=== PATIENT | male | born 1945 | race Caucasian/White ===

== ENCOUNTER 2018-12-02 12:09 | Inpatient (IN) | payer MEDICARE ==
[~2018-12-02] VITALS: Ht 180.3 cm; Wt 97.7 kg
[2018-12-02] MEDS ORDERED: FUROSEMIDE20 MG PO (12:20)
[2018-12-02] MEDS ORDERED: BYSTOLIC10 MG PO (12:21)
[2018-12-02] MEDS ORDERED: FLOMAX0.4 MG PO (12:22)
[2018-12-02] MEDS ORDERED: DIOVAN160 MG PO (12:23)
[2018-12-02] MEDS ORDERED: CARAFATE1 G (12:24)
[2018-12-02] MEDS ORDERED: TESSALON PERLE100 MG PO (12:25)
[2018-12-02] MEDS ORDERED: DEXILANT30 MG PO (12:26)
[2018-12-02] MEDS ORDERED: KLOR-CON 1010 MEQ (12:27)
[2018-12-02 13:18] LABS: BASOPHILS 0.2 % (0-2); HEMATOCRIT 34.7 % (42.0-54.0); IMMATURE GRANULOCYTES 1.3 % (0-5); LYMPHOCYTES 11.8 % (15-50); MCH 20.4 pg (26.0-34.0); MCHC 31.7 g/dL (31.0-37.0); MCV 64.5 fL (80.0-100.0); MEAN PLATELET VOLUME 9.9 fL (7.4-10.4); MONOCYTES 10.5 % (2-11); NEUTROPHILS 75.2 % (40-80); PLATELET COUNT 297 10x3/uL (130-400); RBC 5.38 10x6/uL (4.20-6.10); RDW 16.8 % (11.5-14.5)
--- NOTE | 2018-12-02 13:19 | NUR ---
PATIENT BECAME DIAPHORETIC AND SOB IN CT. HE WAS PLACED BACK ON THE MONTIOR AND REASSESSED. HE IS AWAKE AND ALERT. O2 SAT WAS 85%. PLACED ON 4/L/NC O2 INCREASED TO 92%. RESPIRATORY CALLED FOR UPDRAFT.
[2018-12-02 13:21] VITALS: BP 123/57
[2018-12-02 13:23] LABS: APTT 25.2 SECONDS (22.8-39.4); INR 1.04 (0.85-1.17); PROTIME 13.1 SECONDS (11.6-15.0)
[2018-12-02 13:29] LABS: ALKALINE PHOSPHATASE 48 U/L (46-116); ALT (SGPT) 27 U/L (10-68); CALC OSMOLALITY 283 mosm/kg (275-300); CALCIUM 8.6 mg/dL (8.5-10.1); CARBON DIOXIDE 37.8 mmol/L (21.0-32.0); CHLORIDE - SERUM 98 mmol/L (98-107); CREATININE - SERUM 1.2 mg/dL (0.6-1.3); GLUCOSE 102 mg/dL (74-106); POTASSIUM - SERUM 3.6 mmol/L (3.5-5.1); PROTEIN - SERUM 6.4 g/dL (6.4-8.2); SODIUM 140 mmol/L (136-145); UREA NITROGEN 27 mg/dL (7-18); eGFR NON AFRICAN AMERICAN 63 mL/min (90-120)
[2018-12-02 13:40] LABS: CKMB 1.6 U/L (0.0-3.6); CREATINE KINASE 74 UL (21-232); MAGNESIUM - SERUM 2.3 mg/dL (1.8-2.4); THYROID STIMULATING HORMONE 1.37 uIU/mL (0.36-3.74)
[2018-12-02 13:41] LABS: TROPONIN-I < 0.017 ng/mL (0.000-0.060)
[2018-12-02 14:37] VITALS: BP 118/68
--- NOTE | 2018-12-02 15:15 | NUR ---
RECEIVED TO RM WITH ASSIST OF STAFF. EXPRESSIVE APHASIA BUT ABLE TO ANSWER YES AND NO QUESTIONS WITH SOME INTERMITTANT CONFUSION. FALL RISK WITH PRECAUTIONS IN PLACE. OPEN SHEERS STAGE 2 NOTED TO BILATERAL ISHIUMS OF BUTTOCK WITH DRESSSIGN APPLIED. LUNGS CTA. TELEMETRY INTACT. DENIES ANY CHEST PAIN OR DISCOMFORT WTIH RT. HEMIPARESIS NOTED. ABLE TO USE URINAL AT THIS TIME. FAMILY PRESENT AND ENCOURAGEED TO USE CALL LIGHT FOR ASSIST.
[2018-12-02 15:55] VITALS: BP 128/59
[2018-12-02 17:22] LABS: CKMB 1.8 U/L (0.0-3.6); CREATINE KINASE 80 UL (21-232)
[2018-12-02 17:24] LABS: TROPONIN-I < 0.017 ng/mL (0.000-0.060)
--- NOTE | 2018-12-02 19:12 | NUR ---
PT IN BED RESTING. FAMILY VOICES CONCERNS R/T DISTENDED ABD AND LACK OF VOIDING. PT HAS ONLY VOIDED 100ML SINCE ADMISSION TO HOSPITAL PER FAMILY. WILL BLADDER SCAN.
--- NOTE | 2018-12-02 19:21 | NUR ---
BLADDER SCAN RESULTED 229 ML
--- NOTE | 2018-12-02 19:26 | NUR ---
BLADDER SCAN PERFORMED. 229ML OF URINE IN BLADDER.
[2018-12-02 20:00] VITALS: BP 142/67
[2018-12-02 23:22] LABS: CKMB 1.4 U/L (0.0-3.6); CREATINE KINASE 64 UL (21-232); TROPONIN-I < 0.017 ng/mL (0.000-0.060)
[2018-12-03] VITALS (9 sets, daily range): BP systolic 121–162; BP diastolic 61–92; Ht 180.3 cm; Wt 97.7 kg
--- NOTE | 2018-12-03 01:12 | NUR ---
I have reviewed this patient and I concur with the Shift Assessment completed by the Licensed Practical Nurse today this shift.
--- NOTE | 2018-12-03 01:13 | NUR ---
I have reviewed this patient and I concur with the Shift Assessment completed by the Licensed Practical Nurse today this shift.
[2018-12-03 05:36] LABS: INR 1.09 (0.85-1.17); PROTIME 13.6 SECONDS (11.6-15.0)
[2018-12-03 05:47] LABS: HEMATOCRIT 34.8 % (42.0-54.0); HEMOGLOBIN 10.9 g/dL (13.5-17.5); LYMPHOCYTES 14.4 % (15-50); MCHC 31.3 g/dL (31.0-37.0); MEAN PLATELET VOLUME 9.4 fL (7.4-10.4); NEUTROPHILS 75.6 % (40-80); PLATELET COUNT 300 10x3/uL (130-400); RDW 17.7 % (11.5-14.5)
[2018-12-03 05:49] LABS: MCV 66.9 fL (80.0-100.0)
[2018-12-03 06:05] LABS: CALC OSMOLALITY 289 mosm/kg (275-300); CALCIUM 8.3 mg/dL (8.5-10.1); CARBON DIOXIDE 34.5 mmol/L (21.0-32.0); CHLORIDE - SERUM 101 mmol/L (98-107); CHOL - HDL RATIO 4.6 ratio (2.3-4.9); CHOLESTEROL, TOTAL 143 mg/dL (0-200); CKMB 1.8 U/L (0.0-3.6); CREATINE KINASE 72 UL (21-232); GLUCOSE 96 mg/dL (74-106); HDL CHOLESTEROL 31 mg/dL (32-96); LDL CHOLESTEROL 83 mg/dL (0-100); LDL-HDL RATIO 2.7 ratio (1.5-3.5); MAGNESIUM - SERUM 2.3 mg/dL (1.8-2.4); PHOSPHOROUS 3.1 mg/dL (2.5-4.9); POTASSIUM - SERUM 3.4 mmol/L (3.5-5.1); SODIUM 143 mmol/L (136-145); T4 THYROXIN - FREE 1.07 ng/dL (0.76-1.46); THYROID STIMULATING HORMONE 1.21 uIU/mL (0.36-3.74); TRIGLYCERIDE 149 mg/dL (30-200); TROPONIN-I < 0.017 ng/mL (0.000-0.060); UREA NITROGEN 26 mg/dL (7-18); eGFR NON AFRICAN AMERICAN 78 mL/min (90-120)
--- NOTE | 2018-12-03 07:38 | NUR ---
PT LYING IN BED AWAKE, FAMILY AT BEDSIDE. NO NEEDS VOICED, BED IN LOW POSITION, CL IN REACH, ASSUME PT CARE
--- NOTE | 2018-12-03 08:26 | NUR ---
UNABLE TO DO MRI DUE TO PATIENT BEING UNABLE TO LAY FLAT. PATIENT STATED HE CAN NOT BREATH WHEN LAYING FLAT. ATTEMPTED TO LAY HIM FLAT IN HIS BED AND HE COULD NOT TOLERATE IT. NOTIFIED KATHIE SCHUSTER.
--- NOTE | 2018-12-03 08:50 | NUR ---
PT IS UNABLE TO LAY FLAT PER FAMILY, STATES PT SITS IN RECLINER AT HOME AND THAT IS WHERE HE SLEEPS, UNABLE TO DO MRI, ADVISED CARE TEAM. WILL CONTINUE WITH PLAN OF CARE
--- NOTE | 2018-12-03 09:27 | NUR ---
CTA ORDERED FOR PT. PT CAN NOT LAY FLAT DUE TO BREATHING MEASURES, SPOKE TO CLAUDIA IN REGARDS TO MEDICATIONS TO CALM PT DOWN FOR SCAN. CONTINUE WITH PLAN OF CARE
--- NOTE | 2018-12-03 10:09 | NUR ---
NOTIFIED NURSE KATHIE ABOUT CRITICAL HIGH PCO2 LEVEL. STATED SHE WOULD CALL .
--- NOTE | 2018-12-03 11:21 | NUR ---
Rehab Prescreening Consult recieved and the chart has been reviewed. He has a MRI, PT, OT and ST ordered and still pending. Rehab will follow for results to determine if patient meets criteria for the ARU. Fior Pratt RN Clinical Liaison, Rehab
[2018-12-03 12:29] LABS: % SATURATION 18 % (15-55); IRON 42 ug/dl (35-150); TOTAL IRON BIND CAPACITY 227 ug/dl (260-445); UNSAT IRON BIND CAPACITY 185 ug/dl (150-375)
--- NOTE | 2018-12-03 14:27 | NUR ---
RECEIVED CALL FROM SLY AT [facility] WHO STATED SHE HAS SPOKEN TO DR ALEJANDRO AND HE HAS BEEN ACCEPTED TO [facility] AND NEEDS TO GO THROUGH THE ED DEPARTMENT. FAX FACESHEET TO [phone] CALL REPORT TO [phone] AND TRANFER NUMBER IS [phone], MEDICAL IMAGES WILL BE SENT WELL. CONTINUE WITH PLAN OF CARE UNTIL TRANSFER DONE
[2018-12-03] MEDS ORDERED: ASPIRIN325 MG PO (14:38)
[2018-12-03] MEDS ORDERED: LOVENOX INJ100 MG/ML SC (14:38)
--- NOTE | 2018-12-03 16:48 | NUR ---
PT LYING IN BED, NO FAMILY AT BEDSIDE, NO S/S OF DISTRESS, CONTINUE WITH PLAN OF CARE
--- NOTE | 2018-12-03 18:50 | NUR ---
EMS HERE TO TRANSFER PT TO [facility], WENT TO ASSIST WITH PT TRANSFERRING TO [facility], PT OPENED EYS BUT WOULD NOT RESPOND, BREATHING WAS VERY SHALLOW AND WET, CALLED KENNETH WITH RT TO GET TO 12, PT WAS STATING AT 42, RT WENT TO GET REBREATHER I CALLED A RAPID ON PT, DR WILSON CAME IN AND ORDERED STAT ABG, XRAY AND CT, STATED TO HAVE PT MOVED TO ICU. CALLED TRANSFER TEAM AND ADVISED PT WILL NOT BE GOING TO [place] AT THIS TIME AND TRANSFERRING TO OUR UNIT, EXPLAINED A RAPID HAD TO BE CALLED, CALLED PT SON AND ADVISED OF ICU TRANSFER, CALLED ROD MACHINE OPERATOR AND ADVISED OF RAPID, SPOKE TO TAX INVESTIGATOR IN REGARDS TO MATTER, SHE STATED SHE CALLED ON RADIO AT 3 THAT PT WAS STATING AT 84 AND SHE THOUGHT SOMEONE ANSWERED HER, PT ON HIGHFLOW AT 4L AND SHE STATED SHE DID NOT KNOW THAT PT WAS ON O2, SHE DID NOT FOLLOW UP ON THE REPORT THAT SHE MADE, I EDUCATED HER THAT PT'S O2 MUST BE ABOVE 92 IF LOWER MAKE SURE NURSE KNOWS, CHART THAT SHE ADVISED A NURSE AND WHO SHE SPOKE WITH. PT TRANSFERED TO [address] COMPLE[address]ED. TRANSFER TEAM CALLED BACK AND REQUESTED DR BRAUN NUMBER FOR A DOC TO DOC UPDATE
--- NOTE | 2018-12-03 19:40 | NUR ---
REC'D TO ROOM 2305 VIA BED, TRANSFERRED TO ICU BED, ICU MONITORS ESTAB. PT INCONT OF URINE AND BOWELS, NOT FOLLOWING ANY DIRECTIONS OR SPEAKING. R ARM FLACCID, L LEG MINIMAL REFLEX. PLACED ON BIPAP PER RT. 1999 - PT CLEANED UP, NARAYANAN CATH PLACED WITHOUT DIFFICULTY, GRIFFIN URINE NOTED.
--- NOTE | 2018-12-03 20:20 | NUR ---
FAMILY AT BS, UPDATED, QUESTIONS ANSWERED.
--- NOTE | 2018-12-03 21:20 | NUR ---
DR. CASSIDY HERE, SPOKE WITH FAMILY. NEW ORDER FOR [facility] REC'D.
--- NOTE | 2018-12-03 21:38 | NUR ---
DR. CASSIDY NOTIFIED OF NEW ABGS, PLAN TO CONTINUE WITH TRANSFER TO [facility].
--- NOTE | 2018-12-03 22:40 | NUR ---
SPOKE WITH CLAUDIA AT [facility] RE: TRANSFER. SHE STATED IT WAS CANCELLED - DR. ANGE DYER.
--- NOTE | 2018-12-03 23:11 | NUR ---
DR. CASSIDY NOTIFIED OF TRANSFER CENTER AT [facility] REPORTING TRANSFER WAS CANCELLED.
--- NOTE | 2018-12-03 23:25 | NUR ---
REASSESSMENT PER FLOWSHEET, PT MORE RESPONSIVE AT THIS TIME, NODDED HEAD AND MOVED L EXTR TO COMMAND. ORAL CARE PROVIDED, THEN RESUMED BIPAP AT 60% FIO2. PT BACK TO REST. WILL CONT Q2H TURNING AND ORAL CARE.
[2018-12-04] VITALS (38 sets, daily range): BP systolic 73–159; BP diastolic 38–91
--- NOTE | 2018-12-04 01:00 | NUR ---
RESTING WITH EYES CLOSED, VSS. NO SIGN OF DISTRESS.
[2018-12-04 02:17] LABS: APPEARANCE CLEAR (CLEAR); BILIRUBIN NEGATIVE (NEGATIVE); COLOR YELLOW (YELLOW); GLUCOSE NEGATIVE (NEGATIVE); KETONE NEGATIVE (NEGATIVE); NITRITE NEGATIVE (NEGATIVE); PROTEIN NEGATIVE (NEGATIVE); UROBILINOGEN NORMAL (NORMAL)
--- NOTE | 2018-12-04 03:15 | NUR ---
REASSESSMENT PER FLOWSHEET, NO ACUTE CHANGES.
--- NOTE | 2018-12-04 03:55 | NUR ---
SON BACK TO SEE PT, UPDATE GIVEN. PT GIVEN BREAK FROM BIPAP FOR ORAL CARE.
[2018-12-04 04:19] LABS: BASOPHILS 0.2 % (0-2); EOSINOPHILS 0.2 % (0-7); HEMOGLOBIN 11.2 g/dL (13.5-17.5); MCH 20.5 pg (26.0-34.0); MCHC 31.1 g/dL (31.0-37.0); MCV 65.9 fL (80.0-100.0); MEAN PLATELET VOLUME 9.5 fL (7.4-10.4); MONOCYTES 10.7 % (2-11); NEUTROPHILS 76.9 % (40-80); PLATELET COUNT 317 10x3/uL (130-400); RBC 5.46 10x6/uL (4.20-6.10); RDW 17.4 % (11.5-14.5)
[2018-12-04 04:30] LABS: WBC 17.4 10x3/uL (4.8-10.8)
[2018-12-04 04:36] LABS: ALBUMIN 2.7 g/dL (3.4-5.0); ANION GAP 14.5 mmol/L (8-16); BILIRUBIN - TOTAL 0.58 mg/dL (0.2-1.3); CALCIUM 8.5 mg/dL (8.5-10.1); CARBON DIOXIDE 30.6 mmol/L (21.0-32.0); CREATININE - SERUM 1.1 mg/dL (0.6-1.3); POTASSIUM - SERUM 4.1 mmol/L (3.5-5.1); PROTEIN - SERUM 6.3 g/dL (6.4-8.2)
--- NOTE | 2018-12-04 06:00 | NUR ---
PT INCONT OF SMALL FORMED BROWN STOOL. COMPLETE SLIME-CARE, NARAYANAN CARE DONE. BARRIER CREAM APPLIED TO BUTTOCKS AND GROIN/SLIME-AREA.
--- NOTE | 2018-12-04 06:38 | NUR ---
DR. ANGE PERDUE - NEW ORDERS REC'D.
--- NOTE | 2018-12-04 07:30 | NUR ---
REPORT RECIEVED, SHIFT ASSESSMENT COMPLETE, PT IS LETHARGIC AT THIS TIME, AROUSES TO PAINFUL STIMULI, ON 70% BIPAP WITH 95% O2 SAT, ALL PPP, VSS, WILL CON'T TO MONITOR
--- NOTE | 2018-12-04 09:00 | NUR ---
FAMILY AT BEDSIDE, UPDATE GIVEN, PT MORE ALERT AT THIS TIME
[2018-12-04 09:13] LABS: FOLATE (FOLIC ACID) - SERUM 4.3 ng/mL (>3.0)
--- NOTE | 2018-12-04 11:13 | NUR ---
REASSESSMENT COMPLETE, PT MORE ALERT AT THIS TIME, NO OTHER CHANGES NOTED, WILL CON'T TO MONITOR
--- NOTE | 2018-12-04 13:00 | NUR ---
ATTEMPTED TO TAKE PT TO MRI, PT O2 SAT DROPPING, PLACED BACK ON BIPAP, UPDATE GIVEN TO DR. CASSIDY
--- NOTE | 2018-12-04 13:15 | NUR ---
UPDATE GIVEN TO FAMILY, DISCUSSED INTUBATION, FAMILY OK WITH INTUBATION
--- NOTE | 2018-12-04 13:30 | NUR ---
DR. LEWIS AT BEDSIDE, PT INTUBATED AT THIS TIME, PT TOLERATED WELL
--- NOTE | 2018-12-04 13:40 | NUR ---
FAMILY AT BEDSIDE, UPDATE GIVEN
--- NOTE | 2018-12-04 14:00 | NUR ---
PT TO MRI, WENT ASYSTOLE, CHEST COMPRESSIONS STARTED, 1 MIN OF CPR GIVEN, PT TRANFERRED BACK TO UNIT, FAMILY NOTIFIED, DR. CASSIDY AT BEDSIDE,
--- NOTE | 2018-12-04 15:00 | NUR ---
PT RESTING AT THIS TIME, REPOSITIONED FOR COMFORT, WILL CON'T TO MONITOR
--- NOTE | 2018-12-04 17:15 | NUR ---
FAMILY AT BEDSIDE, UPDATE GIVEN
--- NOTE | 2018-12-04 21:25 | NUR ---
HS MEDS GIVEN. TOLERATED WELL.
--- NOTE | 2018-12-04 21:39 | NUR ---
PT CARE RESUMED BY THIS NURSE.
--- NOTE | 2018-12-04 23:19 | NUR ---
REASSESSMENT COMPLETE. NO CHANGES NOTED IN PT CONDITION. PLACED ON SLIDER SHEET. REPOSITIONED FOR COMFORT. SEE FLOWSHEET FOR DETAILS.
[2018-12-05] VITALS (81 sets, daily range): BP systolic 75–179; BP diastolic 40–99
--- NOTE | 2018-12-05 01:11 | NUR ---
REPOSITIONED FOR COMFORT. VSS. NO SS OF DISTRESS. ORAL CARE PROVIDED.
--- NOTE | 2018-12-05 03:08 | NUR ---
REASSESSMENT COMPLETE. NO CHANGES NOTED IN PT CONDITION.
[2018-12-05 06:03] LABS: ALBUMIN 2.1 g/dL (3.4-5.0); ANION GAP 10.1 mmol/L (8-16); BILIRUBIN - TOTAL 0.48 mg/dL (0.2-1.3); CALCIUM 7.9 mg/dL (8.5-10.1); CARBON DIOXIDE 31.7 mmol/L (21.0-32.0); MAGNESIUM - SERUM 2.2 mg/dL (1.8-2.4); PHOSPHOROUS 1.9 mg/dL (2.5-4.9); POTASSIUM - SERUM 3.8 mmol/L (3.5-5.1); PROTEIN - SERUM 5.3 g/dL (6.4-8.2)
[2018-12-05 06:06] LABS: CREATININE - SERUM 1.4 mg/dL (0.6-1.3)
[2018-12-05 06:33] LABS: HEMATOCRIT 28.8 % (42.0-54.0); HEMOGLOBIN 9.1 g/dL (13.5-17.5); MCH 20.4 pg (26.0-34.0); MCHC 31.6 g/dL (31.0-37.0); MCV 64.7 fL (80.0-100.0); MEAN PLATELET VOLUME 9.7 fL (7.4-10.4); PLATELET COUNT 342 10x3/uL (130-400); RBC 4.45 10x6/uL (4.20-6.10); RDW 17.2 % (11.5-14.5); WBC 15.6 10x3/uL (4.8-10.8)
--- NOTE | 2018-12-05 07:00 | NUR ---
EYES OPEN, DOES MAKE EYE CONTACT, DOES OBEY ANY COMMANDS. WILL SQUEEZE HAND BUT NOT ALWAYS AT REQUEST. DOES NOT RELEASE SQUEEZE ON REQUEST. MOVES LEFT LEG BUT NOT AT REQUEST. NO MOVEMENT ON RIGHT SIDE ARM OR LEG. TURNS HEAD TOWARD LEFT SIDE. ETT SECURE TO VENT BILATERAL LUNG SOUNDS EQUAL AND VERY CONGESTED. ABD LARGE AND DISTENDED. NG TURNED ON TO SUCTION GREENIS BROWN LIQUID DRAINAGE NARAYANAN PATENT DRAINING CLOUDY GRIFFIN URINE. RIGHT UPPER ARM PICC LINE DRESSING DRY AND INTACT INFUSING WITH D5NS AT 100 ML HOUR, DIPRIVAN AT 20 MCG/KG/MIN. NEOSYNPHERINE AT 176 MCG/MIN. VASOPRESSIN AT 0.04 UNITS HEAD OF BED ELEVATED 30 DEGREES.
--- NOTE | 2018-12-05 09:00 | NUR ---
WEANING NEOSYNPHRINE CURRENTLY AT 155 MCG/MIN. DIPRIVAN TURNED UP TO 25 MCG/KG/MIN DUE PATIENT CONTANTLY REACHING FOR ETT TUBE. FAMILY AT BEDSIDE UPDATE GIVEN. MONITOR SR. NO DISTRESS. MINIMAL SECRETIONS PER ETT OR ORALLY. OG TO LOW INTERMITTENT SUCTION CHRISTIANSON BROWN DRAINAGE.
[2018-12-05 09:05] LABS: BASOPHILS 1 % (0-2); HYPOCHROMASIA 1+; LYMPHOCYTES 16 % (15-50); MONOCYTES 14 % (2-11); NEUTROPHILS 62 % (40-80); PLATELET ESTIMATE NORMAL
--- NOTE | 2018-12-05 09:12 | NUR ---
Nutrition Follow Up: Reviewed chart and spoke with nursing NPO>/=3days, recommend to consider alternate nutrition support RD following per protocol
--- NOTE | 2018-12-05 11:00 | NUR ---
CONTINUE TO WEAN NEOSYNEPHRINE. BLOOD PRESSURE MUCH LOWER ON RIGHT SIDE THAN LEFT SIDE. PATIENT RESTING COMFORTABLY. NO DISTRESS.
--- NOTE | 2018-12-05 13:00 | NUR ---
COMPLETE BED BATH GIVEN WITH HIBCLENS. NARAYANAN CARE. SHAVED, HAIR WASHED. PATIENT TOLERATED WELL. CLEAN LINE APPLIED.ABD ROLL AND GROIN AREA RED. MOISTURE BARRIER APPLIED.
--- NOTE | 2018-12-05 14:00 | NUR ---
TUBE FEEDING STARTED PULMOCARE AT 20 ML HOUR. PER OG. OG CHECKED FOR PROPER PLACEMENT AIR BOLUS AUDIBLE IN ABD. FAMILY AT BEDSIDE UPDATE GIVEN. LUNGS SOUND CLEAR. STILL SOME RALES. HEAD OF BED ELEVATED 30 DEGREES
--- NOTE | 2018-12-05 16:00 | NUR ---
REPOSITIONED ON RIGHT SIDE. NEOSYNPHERINE WEANED TO 30 MCG/MIN.
--- NOTE | 2018-12-05 17:00 | NUR ---
NEOPSYNPHERINE AT 50 MCG/MIN. PATIENT REPOSITIONED
--- NOTE | 2018-12-05 18:00 | NUR ---
FAMILY HERE UPDATE GIVEN. DIPRIVAN AT 15 MCG/KG/MIN. NEOSYNPHRINE AT 50 MCG/MIN. NO DISTRESS. MAKES EYE CONTACT. SQUEEZE LEFT HAND BUT NOT TO COMMANDS.
--- NOTE | 2018-12-05 18:00 | MORECARE ---
CASE MANAGEMENT DISCHARGE SUMMARY PATIENT: GAGAN FROST UNIT: [id number] ADM DATE: 12/02/18 AGE: 73 : 44 SEX: M ROOM/BED: D.2305 AUTHOR: BENNY GARRIDO PHYSICIAN: REFERRING PHYSICIAN: RASHEL COLEMAN MD DATE OF SERVICE: 12/05/18 Discharge Plan Patient Name: GAGAN FROST [facility] [facility] 1945 Planned Disposition: Anticipated Discharge Date: Discharge Date: Expected LOS: Initial Reviewer: [email or web address] Initial Review Date: 12/05/2018 Generated: 12/05/18 7:00 pm Patient Name: GAGAN FROST Page [id number] at 1800 All edits/amendments must be made on the electronic document DICTATION DATE: 12/05/181758 ONYX CHIP TERRAZZO WORKER: KATIE 12/05/181758 RPT#: [id number] DC DATE: STATUS: ADM IN [facility] [address] [place] [address] END OF REPORT
--- NOTE | 2018-12-05 18:10 | MORECARE ---
CASE MANAGEMENT DISCHARGE SUMMARY PATIENT: GAGAN FROST UNIT: [id number] ADM DATE: 12/02/18 AGE: 73 : 44 SEX: M ROOM/BED: D.2305 AUTHOR: BENNY GARRIDO PHYSICIAN: REFERRING PHYSICIAN: RASHEL COLEMAN MD DATE OF SERVICE: 12/05/18 Discharge Plan Patient Name: GAGAN FROST [facility] [facility] 1945 Planned Disposition: Anticipated Discharge Date: Discharge Date: Expected LOS: Initial Reviewer: [email or web address] Initial Review Date: 12/05/2018 Generated: 12/05/18 7:09 pm DCPIA - Discharge Planning Initial Assessment Updated by [email or web address]: Maria Elena Tran on 12/05/18 6:04 pm * Is the patient Alert and Oriented? Yes * How many steps to enter\exit or inside your home? * PCP RASHEL COLEMAN MD * Pharmacy [facility] * Preadmission Environment Home with Family * ADLs Partial Dependent * Partial ADLs (Assistance needed) Ambulation Bathing Dressing Eating Medication Management Toileting Transfers * Other Equipment HOME 02 AND PORTABLE 02, WALKER, CANE * List name and contact numbers for known caregivers / representatives who currently or will assist patient after discharge: FERMÍN CLAYTON- [phone] * Verbal permission to speak to the caregivers and representatives has been obtained from the patient. N/A * Please name any agencies selected above. HOU[facility] CALL[facility] - [place] * Additional services required to return to the preadmission environment? No * Can the patient safely return to the preadmission environment? Yes * Has this patient been hospitalized within the prior 30 days at any hospital? No Last DP export: 12/05/18 5:00 p Patient Name: GAGAN FROST Page [id number] at 1810 All edits/amendments must be made on the electronic document DICTATION DATE: 12/05/181808 COMMERCIAL REAL ESTATE APPRAISER: KATIE 12/05/181808 RPT#: [id number] DC DATE: STATUS: ADM IN [facility] [address] [place] [address] END OF REPORT
--- NOTE | 2018-12-05 18:19 | MORECARE ---
CASE MANAGEMENT DISCHARGE SUMMARY PATIENT: GAGAN FROST UNIT: [id number] ADM DATE: 12/02/18 AGE: 73 : 43 SEX: M ROOM/BED: D.2305 AUTHOR: HEMA,DOC PHYSICIAN: REFERRING PHYSICIAN: RASHEL COLEMAN MD DATE OF SERVICE: 12/05/18 Discharge Plan Patient Name: GAGAN FROST Facility: [facility]:[place] : 1945 Planned Disposition: Anticipated Discharge Date: Discharge Date: Expected LOS: Initial Reviewer: [email or web address] Initial Review Date: 12/05/2018 Generated: 12/05/18 7:19 pm Comments DCP- Discharge Planning Updated by [email or web address]: Maria Elena Tran on 12/05/18 5:[address] Patient Name: GAGAN FROST Admission Status: ER Accout number: [id number] Admission Date: 12-02-2018 : 1945 Admission Diagnosis: Attending: RASHEL COLEMAN Current LOS: 3 Anticipated DC Date: Planned Disposition: Primary Insurance: MEDICARE A & B Discharge Planning Comments: CM SPOKE WITH PATIENTS SON (GAGAN) PATIENT IS CURRENTLY ON VENT. GAGNA STATED THAT THE PATIENT LIVED AT HOME WITH SOME OF THE FAMILY WITH HIM AT ALL TIMES. HE STATED THE PATIENT DIDN'T GO OUT MUCH BECAUSE HE WOUULD GET TO SHORT OF BREATH. PATIENT DOES HAVE HOME 02 AND PORTABLE 02, WALKER AND A CANE. UNCERTAIN ON PATIENTS DISPOSITION AT THIS TIME. PATIENT IS VERY CRITICAL AT THIS TIME. PATIENT NOT WILLING TO MAKE ANY DECISIONS AT THIS TIME. CM WILL CIONTINUE TO FOLLOW AND ASSIST NEEDED WITH DISCHARGE PLANNING / NEEDS. Jukebox Checker: Maria Elena Tran DCPIA - Discharge Planning Initial Assessment Updated by [email or web address]: Maria Elena Tran on 12/05/18 6:04 pm * Is the patient Alert and Oriented? Yes * How many steps to enter\exit or inside your home? * PCP RASHEL COLEMAN MD * Pharmacy [facility] * Preadmission Environment Home with Family * ADLs Partial Dependent * Partial ADLs (Assistance needed) Ambulation Bathing Dressing Eating Medication Management Toileting Transfers * Other Equipment HOME 02 AND PORTABLE 02, WALKER, CANE * List name and contact numbers for known caregivers / representatives who currently or will assist patient after discharge: FERMÍN FROST - [place]- [phone] * Verbal permission to speak to the caregivers and representatives has been obtained from the patient. N/A * Please name any agencies selected above. HOUSE CALLS - [place] * Additional services required to return to the preadmission environment? No * Can the patient safely return to the preadmission environment? Yes * Has this patient been hospitalized within the prior 30 days at any hospital? No Last DP export: 12/05/18 5:09 p Patient Name: GAGAN FROST Page [id number] at 1819 All edits/amendments must be made on the electronic document DICTATION DATE: 12/05/181818 POWDER TRUCK DRIVER: KATIE 12/05/181818 RPT#: [id number] DC DATE: STATUS: ADM IN [facility] [address] [place] [address] END OF REPORT
--- NOTE | 2018-12-05 19:28 | NUR ---
PT RECEIVED SEDATED ON VENT. EYES OPEN SPONTANIOUSLY. LEFT UPPER ARM PICC C/D/I. NARAYANAN PATENT WITH CLOUDY GRIFFIN URINE. VENT A/C 16, 550, 50%, 5.O. VSS. ASSESSMENT COMPLETED, SEE FLOW SHEET. WILL CONTINUE TO OBSERVE.
--- NOTE | 2018-12-05 21:38 | NUR ---
PT CONTINUES VENT. IV ALARMS SOUNDING FREQUENTLY FOR AIR IN LINES WITH NO AIR BUBBLES SEEN IN LINES, CHANNEL CHANGED AND ALARMS FOR OCCLUSION STARTED, RATE OF FLUIDS IS LOW. LINES FLUSHED WITHOUT DIFFICULTY, CHANNEL CONTINUED TO ALARM FOR OCCLUSION, NEW CHANNEL APPLIED. WILL CONTINUE TO OBSERVE.
--- NOTE | 2018-12-05 23:20 | NUR ---
PT REASSESSMENT COMPLETED, SEE FLOW SHEET. WILL CONTINUE TO OBSERVE.
[2018-12-06] VITALS (100 sets, daily range): BP systolic 58–159; BP diastolic 39–80
--- NOTE | 2018-12-06 01:14 | NUR ---
VESOPRESSIN STOPPED AFTER TITRATION.
--- NOTE | 2018-12-06 03:05 | NUR ---
REASSESSMENT COMPLETED, SEE FLOW SHEET. NO S/S OF DISTRESS NOTED. WILL CONTINUE TO OBSERVE.
[2018-12-06 04:39] LABS: BASOPHILS 0.2 % (0-2); EOSINOPHILS 2.2 % (0-7); HEMATOCRIT 25.7 % (42.0-54.0); IMMATURE GRANULOCYTES 0.9 % (0-5); LYMPHOCYTES 15.3 % (15-50); MCH 20.1 pg (26.0-34.0); MCHC 31.1 g/dL (31.0-37.0); MCV 64.6 fL (80.0-100.0); MONOCYTES 12.8 % (2-11); NEUTROPHILS 68.6 % (40-80); PLATELET COUNT 231 10x3/uL (130-400); RBC 3.98 10x6/uL (4.20-6.10); RDW 17.2 % (11.5-14.5); WBC 10.4 10x3/uL (4.8-10.8)
--- NOTE | 2018-12-06 05:01 | NUR ---
CHANGED FIO2 TO 40% PER MORNING ABG
[2018-12-06 05:18] LABS: ALBUMIN 1.8 g/dL (3.4-5.0); ALKALINE PHOSPHATASE 38 U/L (46-116); ALT (SGPT) 24 U/L (10-68); BILIRUBIN - TOTAL 0.45 mg/dL (0.2-1.3); CALC OSMOLALITY 309 mosm/kg (275-300); CALCIUM 7.5 mg/dL (8.5-10.1); CARBON DIOXIDE 31.6 mmol/L (21.0-32.0); CHLORIDE - SERUM 113 mmol/L (98-107); GLUCOSE 131 mg/dL (74-106); MAGNESIUM - SERUM 2.5 mg/dL (1.8-2.4); PROTEIN - SERUM 4.9 g/dL (6.4-8.2); SODIUM 151 mmol/L (136-145); UREA NITROGEN 34 mg/dL (7-18)
[2018-12-06 05:23] LABS: CREATININE - SERUM 0.9 mg/dL (0.6-1.3); PHOSPHOROUS 1.5 mg/dL (2.5-4.9); POTASSIUM - SERUM 3.1 mmol/L (3.5-5.1); eGFR NON AFRICAN AMERICAN 88 mL/min (90-120)
--- NOTE | 2018-12-06 06:18 | NUR ---
POTASSIUM POWDER GIVEN VIA OGT PER ELECTROLYTE PROTOCOLS. PT TOLERATED WELL.WILL CONTINUE TO OBSERVE
--- NOTE | 2018-12-06 06:25 | NUR ---
PHARMACY CALLED AND REQUESTED PHOSPHATE 20MM PER ELECTROLYTE PROTOCOL FOR PHOS OF 1.5
--- NOTE | 2018-12-06 06:40 | NUR ---
REPORTED PHOS 1.5 TO SHREYA TAYLOR APRN, AND PT ON ELECTROLYTE PROTOCOL AND PHARMACY CALLED.
--- NOTE | 2018-12-06 07:30 | NUR ---
EYES OPEN LIFTING LEFT HAND UP TO ETT, LOWERS HAND WHEN ASKED. DOES REALLY MAKE EYE CONTACT, BUT TURNS HEAD AND EYES TOWARD, WHEN ASK TO LOOK AT ME. ETT SECURE TO VENT BILATERAL LUNG SOUNDS EQUAL. ABD STILL LOOKS DISTENDED. OG INFUSING WITH PULMOCARE AT 30 ML HOUR. CHECK FOR RESIDUAL 65 MML RECEIVED BACK. RIGHT UPPER ARM PICC LINE DRESSING DRY AND INTACT. HEAD OF BED ELEVATED 30 DECREES. NO DISTRESS NOTED NARAYANAN CATH PATENT
--- NOTE | 2018-12-06 09:05 | NUR ---
FAMILY AT BEDSIDE UPDATE GIVEN. SUCTIONED SMALL AMOUNT WHITE SECRETIONS PER ETT. MINIMAL ORAL SECRETIONS.
--- NOTE | 2018-12-06 10:30 | NUR ---
REPOSITIONED ON BACK.
--- NOTE | 2018-12-06 11:19 | NUR ---
NEOSYNPHRINE INCREASED TO 30 MCG/MIN FOR SYS BP IN 60'S
--- NOTE | 2018-12-06 12:30 | NUR ---
DR. MARTELL HERE TALKED WITH FAMILY
--- NOTE | 2018-12-06 13:43 | NUR ---
DR. CASSIDY HERE TALKED WITH FAMILY
--- NOTE | 2018-12-06 14:00 | NUR ---
REPOSITIONED ON LEFT SIDE. NO ORAL OR TRACH SECRETIONS. URINE DARK THICK BROWN. MONITOR SR. HEAD OF BED ELEVATED. 10CC RESIDUAL PER OG. TUBE FEEDING INCREASED TO 40 ML HOUR.
--- NOTE | 2018-12-06 14:38 | NUR ---
NEOSYNEPHRINE INCREASED TO 40 MCG/MIN FOR SBP LESS THAN 70.
--- NOTE | 2018-12-06 15:39 | NUR ---
NEOSYNPHERINE WEAN TO 30 MCG/MIN. FOR SYS BP GREATER THAN 95
--- NOTE | 2018-12-06 18:00 | NUR ---
TURN SIDE TO SIDE, SMALL FORMED BM. NEW LINEN NARAYANAN CARE DONE. PATIENT TOLERATES POORLY BLOOD PRESSURE DROPPED NEOSYNPHERINE INCREASED TO 40 MCG/MIN.
--- NOTE | 2018-12-06 19:00 | NUR ---
ASSESSMENT COMPLETED PER FLOWSHEETS. PT SEDATED ON VENT, OPENS EYES WITH VOICES. ST ON CM WITH HR AT 105BPM. NEOSYNEPHRINE DRIP AT 40MCG/MIN INFUSING VIA PUMP TO KEEP SBP> 90S. WILL CONT TO MONITOR.
--- NOTE | 2018-12-06 21:00 | NUR ---
FAMILY AT BEDSIDE, UPDATED.
--- NOTE | 2018-12-06 23:00 | NUR ---
REASSESSMENT COMPLETED. SEE FLOWSHEETS FOR ALL FINDINGS. NO ACUTE SIGNS OF DISTRESS NOTED. TITRATE LANETTE DRIP FOR BP. CPOC.
[2018-12-07] VITALS (45 sets, daily range): BP systolic 56–162; BP diastolic 34–74
--- NOTE | 2018-12-07 01:00 | NUR ---
PT SEDATED ON VENT WITHOUT DISTRESS. VSS
--- NOTE | 2018-12-07 03:00 | NUR ---
REASSESSMENT COMPLETED. SEE FLOWSHEETS FOR ALL FINDINGS. NO ACUTE CHANGES IN PT'S STATUS NOTED. CONT SEDATION ON VENT FOR PT'S COMFORT. CPOC.
[2018-12-07 05:25] LABS: HEMOGLOBIN 8.6 g/dL (13.5-17.5); MCHC 30.7 g/dL (31.0-37.0); MCV 64.5 fL (80.0-100.0); MEAN PLATELET VOLUME 9.6 fL (7.4-10.4); RBC 4.34 10x6/uL (4.20-6.10); RDW 17.7 % (11.5-14.5); WBC 12.1 10x3/uL (4.8-10.8)
[2018-12-07 05:26] LABS: MCH 19.8 pg (26.0-34.0); PLATELET COUNT 306 10x3/uL (130-400)
--- NOTE | 2018-12-07 05:45 | NUR ---
NEOSYNEPHRINE DRIP OFF.
[2018-12-07 05:48] LABS: ALBUMIN 2.1 g/dL (3.4-5.0); ALKALINE PHOSPHATASE 46 U/L (46-116); BILIRUBIN - TOTAL 0.39 mg/dL (0.2-1.3); CALC OSMOLALITY 306 mosm/kg (275-300); CALCIUM 7.5 mg/dL (8.5-10.1); CARBON DIOXIDE 30.5 mmol/L (21.0-32.0); CHLORIDE - SERUM 114 mmol/L (98-107); CREATININE - SERUM 0.9 mg/dL (0.6-1.3); GLUCOSE 121 mg/dL (74-106); POTASSIUM - SERUM 3.8 mmol/L (3.5-5.1); PROTEIN - SERUM 5.4 g/dL (6.4-8.2); SODIUM 150 mmol/L (136-145); UREA NITROGEN 35 mg/dL (7-18); eGFR NON AFRICAN AMERICAN 88 mL/min (90-120)
[2018-12-07 05:49] LABS: ALT (SGPT) 34 U/L (10-68); PHOSPHOROUS 2.2 mg/dL (2.5-4.9)
--- NOTE | 2018-12-07 07:05 | NUR ---
SHIFT REPORT RECEIVED. INTUBATED AND SEDATED. OPENS EYES AND MOVES LEFT ARM SPONTANOUSLY. DOES NOT FOLLOW COMMANDS. HAS NEHA PICC WITH PROPOFOL AT 15MCG/KG/MIN, 1/2 NS AT 100ML/HR. ETT 8.5 26 AT THE LIP. A/C R14, TV 600, FIO2 40%, PEEP 5. OGT WITH PULMOCARE AT 40ML/HR WITH 25ML H2O FLUSH Q1HR. NARAYANAN IN PLACE WITH DARK URINE NOTED. WRIST RESTRAINTS IN PLACE PER ORDER. SHIFT ASSESSMENT COMPLETED. SIDE RAILS UP X 2. BED IN LOW POSITION. WILL CONTINUE TO MONITOR.
[2018-12-07 08:30] LABS: EOSINOPHILS 3 % (0-7); LYMPHOCYTES 27 % (15-50); MONOCYTES 10 % (2-11); NEUTROPHILS 60 % (40-80); PLATELET ESTIMATE NORMAL
--- NOTE | 2018-12-07 09:00 | NUR ---
RESTING COMFORTABLY. FAMILY AT BEDSIDE. WILL CONTINUE TO MONITOR.
--- NOTE | 2018-12-07 09:20 | NUR ---
Nutrition Follow Up: Pulmocare increased to 40mL/hour with 25mL/hour water flush This regimen provides 1440 calories, 60gm protein and 1353mL fluid Propofol at 15mcg/kg/min RD following
--- NOTE | 2018-12-07 11:15 | NUR ---
SBP DROPPED TO 60S. LANETTE INITIATED AT 5MCG/MIN PER ORDERS. WILL CONTINUE TO MONITOR.
--- NOTE | 2018-12-07 12:17 | NUR ---
A LINE PLACED ON RIGHT ARM PER ORDERS BY ANESTHESIA. BP IN LOW 100S. FAMILY AT BEDSIDE. WILL CONTINUE TO MONITOR.
--- NOTE | 2018-12-07 14:03 | NUR ---
1120- LANETTE INCREASED TO 10MCG/MIN. 1130-LANETTE INCREASED TO 15MCG/MIN. 1150 LANETTE INCREASED TO 20MCG/MIN. 1230 LANETTE INCREASED TO 25MCG/MIN. 1300 LANETTE INCREASED TO 30MCG/MIN. 1330 LANETTE INCREASED TO 35MCG/MIN. 1345 LANETTE INCREASED TO 40MCG/MIN.
--- NOTE | 2018-12-07 14:48 | NUR ---
TREATING BP WITH LANETTE. AT 1440 HR DROPPED TO 30S. ATROPINE GIVEN. PT DNR. DR. CASSIDY NOTIFIED. ORDERED DOPAMINE TO BE STARTED. FAMILY DOES NOT WANT ANY MORE MEDS AT THIS TIME. FAMILY AT BEDSIDE. PT IN 3RD DEGREE BLOCK. WILL CONTINUE TO MONITOR.
--- NOTE | 2018-12-07 15:01 | NUR ---
DR. MARTELL NOTIFIED OF LOW HR. ALSO NOTIFIED THAT FAMILY DID NOT WANT ANYTHING ELSE DONE AT THIS TIME.
--- NOTE | 2018-12-07 16:20 | NUR ---
STUD DRIVER WAS NOTIFIED. CHENCHO CALLED AT 1321. WANTS US TO CALL BACK WHEN FAMILY IS FINISHED VIEWING THE PATIENT. DR. MARTELL WAS MADE AWARE OF PT PASSING.
--- NOTE | 2018-12-07 17:22 | NUR ---
LEASING CONSULTANT NOTIFIED OF PT'S PASSING. [facility] HOME NOTIFIED TO MANAGER STYLIST BODY. FAMILY HAS WENT HOME AT THIS TIME.
--- NOTE | 2018-12-07 18:40 | NUR ---
HOME PICKED BODY UP AT THIS TIME.
--- NOTE | 2018-12-07 18:56 | MORECARE ---
CASE MANAGEMENT DISCHARGE SUMMARY PATIENT: GAGAN FROST UNIT: [id number] ADM DATE: 12/02/18 AGE: 73 : 43 SEX: M ROOM/BED: D.2305 AUTHOR: HEMA,DOC PHYSICIAN: REFERRING PHYSICIAN: RASHEL COLEMAN MD DATE OF SERVICE: 12/07/18 Discharge Plan Patient Name: GAGAN FROST Facility: [facility]:[place] : 1945 Planned Disposition: Anticipated Discharge Date: Discharge Date: 12/07/2018 Expected LOS: Initial Reviewer: [email or web address] Initial Review Date: 12/05/2018 Generated: 12/07/18 7:56 pm DCP- Discharge Planning Updated by [email or web address]: Maria Elena Tran on 12/05/18 5:[address] Patient Name: GAGAN FROST Admission Status: ER Accout number: [id number] Admission Date: 12-02-2018 : 1945 Admission Diagnosis: Attending: RASHEL COLEMAN Current LOS: 3 Anticipated DC Date: Planned Disposition: Primary Insurance: MEDICARE A & B Discharge Planning Comments: CM SPOKE WITH PATIENTS SON (GAGAN) PATIENT IS CURRENTLY ON VENT. GAGAN STATED THAT THE PATIENT LIVED AT HOME WITH SOME OF THE FAMILY WITH HIM AT ALL TIMES. HE STATED THE PATIENT DIDN'T GO OUT MUCH BECAUSE HE WOUULD GET TO SHORT OF BREATH. PATIENT DOES HAVE HOME 02 AND PORTABLE 02, WALKER AND A CANE. UNCERTAIN ON PATIENTS DISPOSITION AT THIS TIME. PATIENT IS VERY CRITICAL AT THIS TIME. PATIENT NOT WILLING TO MAKE ANY DECISIONS AT THIS TIME. CM WILL CIONTINUE TO FOLLOW AND ASSIST NEEDED WITH DISCHARGE PLANNING / NEEDS. Trapeze Artist: Maria Elena Tran DCPIA - Discharge Planning Initial Assessment Updated by [email or web address]: Maria Elena Tran on 12/05/18 6:04 pm * Is the patient Alert and Oriented? Yes * How many steps to enter\exit or inside your home? * PCP RASHEL COLEMAN MD * Pharmacy [facility] * Preadmission Environment Home with Family * ADLs Partial Dependent * Partial ADLs (Assistance needed) Ambulation Bathing Dressing Eating Medication Management Toileting Transfers * Other Equipment HOME 02 AND PORTABLE 02, WALKER, CANE * List name and contact numbers for known caregivers / representatives who currently or will assist patient after discharge: FERMÍN FROST - [place]- [phone] * Verbal permission to speak to the caregivers and representatives has been obtained from the patient. N/A * Please name any agencies selected above. [facility] * Additional services required to return to the preadmission environment? No * Can the patient safely return to the preadmission environment? Yes * Has this patient been hospitalized within the prior 30 days at any hospital? No Last DP export: 12/05/18 5:19 p Patient Name: GAGAN FROST Page [id number] at 1856 All edits/amendments must be made on the electronic document DICTATION DATE: 12/07/181854 MID LEVEL PROJECT MANAGER: KATIE 12/07/181854 RPT#: [id number] DC DATE:12/07/18 STATUS: DIS IN [facility] [address] [place] [address] END OF REPORT
[2018-12-11 17:08] LABS: AEROBE ID Final report (())
== END 2018-12-07 18:42 | DRG 64 ==
LOC: D.ER 12:09 → D.ICU 14:07 → D.EDHOLD 14:07 → D.MS 14:07 → D.ICU 12-03 20:03
PROVIDERS: Family Medicine; Internal Medicine Nephrology; Internal Medicine Pulmonary Disease; ADMIT Family Medicine; ATTEND Family Medicine
PROC: 0BH17EZ Insertion of Endotracheal Airway into Trachea, Via Natural or Artificial Opening (ICD-10-PCS; principal; 2018-12-04)
PROC: 5A1945Z Respiratory Ventilation, 24-96 Consecutive Hours (ICD-10-PCS; 2018-12-04)
PROC: 02HV33Z Insertion of Infusion Device into Superior Vena Cava, Percutaneous Approach (ICD-10-PCS; 2018-12-04)
PROC: 03HY32Z Insertion of Monitoring Device into Upper Artery, Percutaneous Approach (ICD-10-PCS; 2018-12-07)
DX: I63.9 Cerebral infarction, unspecified (principal); J69.0 Pneumonitis due to inhalation of food and vomit; R40.2214 Coma scale, best verbal response, none, 24 hours or more after hospital admission; J96.22 Acute and chronic respiratory failure with hypercapnia; J96.21 Acute and chronic respiratory failure with hypoxia; G81.91 Hemiplegia, unspecified affecting right dominant side; I10 Essential (primary) hypertension; K21.9 Gastro-esophageal reflux disease without esophagitis; K59.09 Other constipation; N40.0 Benign prostatic hyperplasia without lower urinary tract symptoms; Z87.891 Personal history of nicotine dependence; G89.29 Other chronic pain; R47.81 Slurred speech; R53.83 Other fatigue; R40.2354 Coma scale, best motor response, localizes pain, 24 hours or more after hospital admission; J43.9 Emphysema, unspecified; R40.2144 Coma scale, eyes open, spontaneous, 24 hours or more after hospital admission